=== PATIENT | male | born 1950 | race Caucasian/White ===

== ENCOUNTER 2017-10-22 13:12 | Emergency (ER) | payer MEDICARE ==
[~2017-10-22] VITALS: Ht 172.7 cm; Wt 79.5 kg
[2017-10-22] MEDS ORDERED: ASPIRIN ADULT L81 M3 PO (13:24)
[2017-10-22] MEDS ORDERED: PAROXETINE HYDR20 MG PO (13:24)
[2017-10-22] MEDS ORDERED: FINASTERIDE5 M1 PO (13:24)
[2017-10-22] MEDS ORDERED: FLOMAX0.4 MG PO (13:24)
[2017-10-22] MEDS ORDERED: ROSUVASTATIN CA20 MG PO (13:25)
[2017-10-22] MEDS ORDERED: GOOD NEIGHBOR P1 T33 PO (13:25)
[2017-10-22 13:48] LABS: BASO # 0.1 (0.02-0.10); EOS # 0.6 (0.04-0.40); HEMOGLOBIN 16.7 g/dL (13.5-18.0); LYMPH# 3.1 (1.50-4.00); MEAN CELL VOLUME 90 fl (78-100); MEAN CORPUSCULAR HEMOGLOBIN 31 pg (27-31); MEAN CORPUSCULAR HGB CONC 34 g/dL (33-37); MEAN PLATELET VOLUME 8.4 fl (7.4-10.4); MONO # 0.8 (0.20-0.80); NEU # 3.2 (1.40-6.50); PLATELET COUNT 340 K/mm3 (130-400); RED BLOOD COUNT 5.46 M/mm3 (4.20-5.60); RED CELL DISTRIBUTION WIDTH 13.5 % (11.5-14.5); WHITE BLOOD COUNT 7.8 K/mm3 (4.8-10.8)
[2017-10-22 13:51] LABS: EOS % 7.2 % (0.0-4.0)
[2017-10-22 13:58] LABS: ALBUMIN 4.2 g/dL (3.5-5.0); CALCIUM 9.9 mg/dL (8.4-10.2); POTASSIUM 4.2 mmol/L (3.6-5.0); TOTAL BILIRUBIN 0.5 mg/dL (0.2-1.3)
[2017-10-22] MEDS ORDERED: GOOD NEIGHBOR P20 M1 PO (17:15)
[2017-10-22 17:20] VITALS: BP 148/85
== END 2017-10-22 17:16 | disposition home or self-care (01) ==
LOC: ED 13:12
PROVIDERS: Family Medicine
DX: R07.9 Chest pain, unspecified (principal); E78.5 Hyperlipidemia, unspecified; Z79.82 Long term (current) use of aspirin; Z79.899 Other long term (current) drug therapy

== ENCOUNTER → 2017-11-02 | Outpatient (CLI) | payer MEDICARE ==
[2017-10-22 17:20] VITALS: BP 148/85
[~2017-11-02] MED LIST: ASPIRIN ADULT L81 M3 PO; FINASTERIDE5 M1 PO; FLOMAX0.4 MG PO; GOOD NEIGHBOR P1 T33 PO; GOOD NEIGHBOR P20 M1 PO; PAROXETINE HYDR20 MG PO; ROSUVASTATIN CA20 MG PO
== END ==
LOC: CARDREHAB 07:32 → CARDLAB 07:32
DX: R07.9 Chest pain, unspecified (principal)

== ENCOUNTER 2018-08-10 08:30 | Outpatient (RCR) | payer MEDICARE | END 2018-08-10 09:00 | LOC: PT 08:30 | DX: M25.512 Pain in left shoulder (principal); G89.29 Other chronic pain ==

== ENCOUNTER → 2019-07-31 | Outpatient (CLI) | payer MEDICARE | LOC: VAS 15:42 → RAD 15:45 | DX: R94.31 Abnormal electrocardiogram [ECG] [EKG] (principal) ==

== ENCOUNTER → 2020-05-07 | Outpatient (CLI) | payer MEDICARE, OTHER | LOC: RAD 08:17 | DX: D18.03 Hemangioma of intra-abdominal structures (principal); K76.89 Other specified diseases of liver; Z90.49 Acquired absence of other specified parts of digestive tract ==

== ENCOUNTER 2021-08-10 08:47 | Outpatient (RCR) | payer MEDICARE, OTHER | END 2021-09-03 | disposition home or self-care (01) | LOC: PT | DX: M25.551 Pain in right hip (principal); M79.604 Pain in right leg ==

== ENCOUNTER 2021-09-04 08:27 | Outpatient (RCR) | payer MEDICARE, OTHER | END 2021-10-04 | disposition home or self-care (01) | LOC: PT | DX: M25.551 Pain in right hip (principal); M79.604 Pain in right leg ==

== ENCOUNTER 2022-05-05 10:45 | Outpatient (RCR) | payer MEDICARE, OTHER | END 2022-06-04 | disposition home or self-care (01) | LOC: PT | DX: M48.02 Spinal stenosis, cervical region (principal) ==

== ENCOUNTER 2023-04-20 09:10 | Outpatient (RCR) | payer MEDICARE, OTHER | END 2023-05-05 | disposition home or self-care (01) | LOC: PT | DX: Z98.1 Arthrodesis status (principal) ==